=== PATIENT | female | born 1985 | race Caucasian/White ===

== ENCOUNTER 2020-05-05 21:41 | Emergency (ER) | payer OTHER ==
[~2020-05-05] VITALS: Ht 162.6 cm; Wt 54.4 kg
--- NOTE | 2020-05-05 21:55 | NUR ---
Dr. Hurley at bedside for MSE
[2020-05-05] MEDS ORDERED: MORPHINE SULFATE 4 MG/1 ML DISP.SYRIN IM ONE (22:00)
[2020-05-05] MEDS ORDERED: TDAP DIPH,PERTUSS,TET VAC/PF 0.5 ML DISP.SYRIN IM ONE ×2 (22:00→22:10)
[2020-05-05] MEDS ORDERED: ONDANSETRON ODT 4 MG TAB.RAPDIS SL ONE (22:00)
[2020-05-05] MEDS ORDERED: MORPHINE SULFATE 2 MG/1 ML DISP.SYRIN ONE (22:09)
[2020-05-05] MEDS ORDERED: ONDANSETRON ODT 4 MG TAB.RAPDIS ONE (22:10)
--- NOTE | 2020-05-05 22:32 | NUR ---
pt out of ER for CT
--- NOTE | 2020-05-05 22:55 | NUR ---
pt back from CT
--- NOTE | 2020-05-05 23:24 | NUR ---
Patient discharged to home in stable condition. Written and verbal after care instructions given. Patient verbalizes understanding of instructions. Stressed follow up or return to ER for worsening s/s. aa/ox4. able to speak in complete sentences in stable condition no s/s of distress ambulatory with steady gait all belongings with pt Addendum: 05/05/20 at [id number] by RANJIT pt's miguel ángeliend will drive pt home
[2020-05-05 23:38] VITALS: BP 113/71
== END 2020-05-05 23:24 | disposition home or self-care (01) ==
LOC: ER 21:48
DX: S00.83XA Contusion of other part of head, initial encounter (principal); S90.32XA Contusion of left foot, initial encounter; S13.4XXA Sprain of ligaments of cervical spine, initial encounter; S83.92XA Sprain of unspecified site of left knee, initial encounter; S80.212A Abrasion, left knee, initial encounter; S80.211A Abrasion, right knee, initial encounter; S00.31XA Abrasion of nose, initial encounter; W01.0XXA Fall on same level from slipping, tripping and stumbling without subsequent striking against object, initial encounter; Y93.01 Activity, walking, marching and hiking; Y92.89 Other specified places as the place of occurrence of the external cause; R51 Headache
CPT/HCPCS: 70450; 70486; 72125; 73564 ×2; 73630; 90471; 90715; 96372; 99285; J2270; A4663; Q0162